=== PATIENT | female | born 1960 | race Caucasian/White ===

== ENCOUNTER 2022-01-25 13:02 | Inpatient (IN) | payer BC, OTHER ==
[~2022-01-25] VITALS: Ht 154.9 cm; Wt 150.8 kg
[2022-01-25 14:57] LABS: Basophils # (auto) 0.1 10 ^3/uL (0-0.2); Basophils % (auto) 0.7 % (0.0-2.0); Eosinophils # (auto) 0.3 10 ^3/uL (0-0.8); Eosinophils % (auto) 3.1 % (0.0-7.0); Hematocrit 42.5 % (36.0-46.0); Lymphocytes # (auto) 2.4 10 ^3/uL (0.4-5.4); Lymphocytes % (auto) 28.7 % (10.0-50.0); Mean Corpuscular Hemoglobin 30.7 pg (28.0-32.0); Monocytes # (auto) 0.8 10 ^3/uL (0-1.3); Neutrophils % (auto) 58.5 % (37.0-80.0); Nucleated Red Blood Cells % 0.1 %; Red Blood Cells 4.57 10^6/uL (4.0-5.20); Red Cell Distribution Width 12.9 % (11.8-14.3); White Blood Cell 8.5 10^3/uL (4.4-10.8)
[2022-01-25 15:14] LABS: Albumin 3.4 g/dL (3.4-5.0); Calcium 8.8 mg/dL (8.5-10.1); Potassium 4.4 mmol/L (3.5-5.1)
[2022-01-25 15:17] LABS: BUN/Creatinine Ratio 21.3; Bilirubin, Total 0.2 mg/dL (0.2-1.0); Total Protein 6.7 g/dL (6.4-8.2)
[2022-01-25] MEDS ORDERED: cefTRIAXone 1GM/50ML D5W 50 ML IV ONE (16:00)
[2022-01-25] MEDS ORDERED: IOHEXOL 350 MG/ML 100ML IJ ONE (16:27)
[2022-01-25] MEDS ORDERED: ENOXAPARIN SOD 100 MG/1 ML SYRINGE SC ONE (17:30)
[2022-01-25] MEDS ORDERED: DOCUSATE SOD 100 MG CAP PO PRN (20:00)
[2022-01-25] MEDS ORDERED: HEPARIN SODIUM (PORCINE) 5000 UNITS/ML 1ML VIAL IV ONE (20:00)
[2022-01-25] MEDS ORDERED: ONDANSETRON HCL 4 MG/2 ML VIAL IV PRN (20:00)
[2022-01-25] MEDS ORDERED: ACETAMINOPHEN 325 MG TAB PO ONE (20:15)
[2022-01-25] MEDS ORDERED: LOSA-69 PO (20:22)
[2022-01-25] MEDS ORDERED: FUR20T PO (20:22)
[2022-01-25 20:26] VITALS: BP 148/98
[2022-01-25] MEDS ORDERED: ALBUTEROL SULF 2.5 MG/0.5ML(0.5%) NEB SOLN NEB PRN (20:30)
[2022-01-25 20:57] LABS: INR 0.95 (0.9-1.15); Partial Thromboplastin Time 26.3 sec (24.6-33.4)
[2022-01-25] MEDS: HEPARIN DRIP/D5W 100UNITS/ML 250 ML IV SCH (21:22)
[2022-01-25] MEDS ORDERED: DEXTROSE (50%) 50ML SYRG IV PRN (23:00)
[2022-01-25 23:07] VITALS: BP 134/70
[2022-01-25] MEDS ORDERED: OMEP-260 PO (23:26)
[2022-01-25] MEDS ORDERED: GAB100C PO (23:26)
[2022-01-25] MEDS ORDERED: HYDR25TA87 PO (23:26)
[2022-01-25] MEDS ORDERED: OXYB5TAB61 PO (23:26)
[2022-01-25] MEDS ORDERED: IBUP400T23 PO (23:26)
[2022-01-25] MEDS ORDERED: HYDR-3682 PO (23:26)
[2022-01-25] MEDS ORDERED: ALBUAER3 IN (23:26)
[2022-01-25] MEDS: IBUPROFEN 600 MG TAB PO PRN (23:54)
[2022-01-26 03:16] LABS: Basophils # (auto) 0.1 10 ^3/uL (0-0.2); Basophils % (auto) 0.7 % (0.0-2.0); Eosinophils # (auto) 0.3 10 ^3/uL (0-0.8); Eosinophils % (auto) 4.2 % (0.0-7.0); Hematocrit 39.7 % (36.0-46.0); Hemoglobin 13.1 g/dL (12.2-16.2); Lymphocytes # (auto) 2.9 10 ^3/uL (0.4-5.4); Lymphocytes % (auto) 34.9 % (10.0-50.0); Mean Corpuscular Hemoglobin 30.4 pg (28.0-32.0); Mean Corpuscular Hgb Conc. 32.9 g/dL (32.0-36.0); Mean Corpuscular Volume 92.4 fL (80.0-100.0); Monocytes # (auto) 0.7 10 ^3/uL (0-1.3); Monocytes % (auto) 8.3 % (0.0-12.0); Neutrophils # (auto) 4.3 10 ^3/uL (1.6-8.6); Neutrophils % (auto) 51.9 % (37.0-80.0); Nucleated Red Blood Cells % 0.1 %; Red Cell Distribution Width 13.4 % (11.8-14.3); White Blood Cell 8.2 10^3/uL (4.4-10.8)
[2022-01-26 03:30] LABS: Partial Thromboplastin Time 58.5 sec (24.6-33.4)
[2022-01-26 03:33] LABS: Calcium 8.2 mg/dL (8.5-10.1); Potassium 3.9 mmol/L (3.5-5.1)
[2022-01-26 05:00] VITALS: BP 137/74
[2022-01-26] MEDS: InsuLIN REG 1unit/0.01ml Soln (100units/ml) SC SCH ×2 (06:34→12:18)
[2022-01-26] MEDS: ACCU-CHEK COMFORT CURVE STRIP VI SCH ×2 (06:34→12:16)
[2022-01-26] MEDS: IBUPROFEN 600 MG TAB PO PRN ×2 (06:38→13:16)
[2022-01-26 09:00] VITALS: BP 179/95
[2022-01-26] MEDS: LOSARTAN POTASSIUM 50 MG TAB PO SCH (09:23)
[2022-01-26] MEDS: HEPARIN DRIP/D5W 100UNITS/ML 250 ML IV SCH (09:31)
[2022-01-26 09:35] LABS: INR 0.97 (0.9-1.15); Partial Thromboplastin Time 57.5 sec (24.6-33.4)
[2022-01-26] MEDS ORDERED: PANTOPRAZOLE 40 MG/10 ML VIAL INJ IV SCH (10:00)
[2022-01-26] MEDS: APIXABAN 5 MG TAB PO SCH ×2 (11:47→22:54)
[2022-01-26 13:00] VITALS: BP 142/78
[2022-01-26 15:16] LABS: Urine Bacteria FEW /hpf (None Seen); Urine Blood Negative /uL (Negative); Urine Specific Gravity 1.007 (1.001-1.035); Urine WBC 2 /hpf (0 - 5)
[2022-01-26] MEDS: GABAPENTIN 100 MG CAP PO SCH ×2 (15:42→22:54)
[2022-01-26 16:47] VITALS: BP 146/92
[2022-01-26] MEDS ORDERED: MORPHINE SULFATE INJ 2 MG/ml SYRG IV PRN ×2 (21:15)
[2022-01-26] MEDS ORDERED: NITROGLYCERIN 0.4 MG SL TAB SL PRN ×2 (21:15)
[2022-01-26] MEDS ORDERED: InsuLIN REG 1unit/0.01ml Soln (100units/ml) SC SCH (22:00)
[2022-01-26 22:27] VITALS: BP 131/76
[2022-01-26] MEDS: SODIUM CHLOR 0.9% PF (SALINE LOCK) 10ML VIAL/SYR IV SCH (22:52)
[2022-01-26] MEDS: hydrALAZINE HCL 25 MG TAB PO SCH (22:54)
[2022-01-27 05:00] VITALS: BP 138/72
[2022-01-27] MEDS: GABAPENTIN 100 MG CAP PO SCH ×3 (06:56→22:19)
[2022-01-27] MEDS: SODIUM CHLOR 0.9% PF (SALINE LOCK) 10ML VIAL/SYR IV SCH ×3 (06:56→22:19)
[2022-01-27] MEDS: HYDROcodone-ACET 5/325MG TAB PO PRN ×3 (06:57→22:20)
[2022-01-27 08:00] VITALS: BP 140/83
[2022-01-27 08:35] VITALS: BP 123/65
[2022-01-27] MEDS ORDERED: PANTOPRAZOLE 40 MG TAB PO SCH (10:00)
[2022-01-27] MEDS ORDERED: FUROSEMIDE 20 MG TAB PO SCH (10:00)
[2022-01-27] MEDS: APIXABAN 5 MG TAB PO SCH ×2 (10:32→22:19)
[2022-01-27] MEDS: hydrALAZINE HCL 25 MG TAB PO SCH ×2 (10:33→22:00)
[2022-01-27] MEDS: LOSARTAN POTASSIUM 50 MG TAB PO SCH (10:34)
[2022-01-27 12:14] VITALS: BP 123/65
[2022-01-27] MEDS: IBUPROFEN 600 MG TAB PO PRN (14:28)
[2022-01-27 16:55] VITALS: BP 121/76
[2022-01-27 22:00] VITALS: BP 119/56
== END 2022-01-27 22:50 | disposition short-term general hospital (02) | DRG 175 ==
LOC: EDBD 13:02 → ER 13:02 → OVERFLOW 19:58 → WEST WING 23:15 → TELE-WESTW 01-26 21:22
PROVIDERS: ADMIT Nurse Practitioner Family; ATTEND Internal Medicine
DX: I26.99 Other pulmonary embolism without acute cor pulmonale (principal); J96.00 Acute respiratory failure, unspecified whether with hypoxia or hypercapnia; J98.11 Atelectasis; Z68.44 Body mass index [BMI] 60.0-69.9, adult; J45.909 Unspecified asthma, uncomplicated; I10 Essential (primary) hypertension; I89.0 Lymphedema, not elsewhere classified; E66.01 Morbid (severe) obesity due to excess calories; K44.9 Diaphragmatic hernia without obstruction or gangrene; R79.89 Other specified abnormal findings of blood chemistry; Z90.49 Acquired absence of other specified parts of digestive tract; Z88.8 Allergy status to other drugs, medicaments and biological substances; Z20.822 Contact with and (suspected) exposure to COVID-19
CPT/HCPCS: 36415; 71045; 71275; 80048; 80053; 81001; 82962; 83605; 83880; 84484; 85025; 85379; 85610; 85730; 87040; 93005; 93306; 93970; 96361; 96372; 96374; 96375; 99291; C9113; G0378; J0696; J1815